=== PATIENT | female | born 1950 | race Caucasian/White ===

== ENCOUNTER → 2024-02-29 14:48 | Outpatient (REF) | payer OTHER, SELFPAY | LOC: MRI 3T 14:48 | PROVIDERS: ATTENDING PHYSICIAN Internal Medicine Hematology & Oncology | DX: C50.111 Malignant neoplasm of central portion of right female breast (principal); D53.9 Nutritional anemia, unspecified; D64.9 Anemia, unspecified; M85.9 Disorder of bone density and structure, unspecified; R79.89 Other specified abnormal findings of blood chemistry | CPT/HCPCS: 77049; A9585 ==

== ENCOUNTER → 2024-03-08 13:36 | Outpatient (REF) | payer OTHER, SELFPAY | LOC: RAD 13:36 | PROVIDERS: ATTENDING PHYSICIAN Physician Assistant Medical | DX: Z20.828 Contact with and (suspected) exposure to other viral communicable diseases (principal) | CPT/HCPCS: 71046 ==

== ENCOUNTER → 2024-09-23 10:55 | Outpatient (REF) | payer OTHER, SELFPAY | LOC: RAD 10:55 | PROVIDERS: ATTENDING PHYSICIAN Internal Medicine; FAMILY PHYSICIAN Nurse Practitioner Adult Health | DX: R91.1 Solitary pulmonary nodule (principal) | CPT/HCPCS: 71250 ==